=== PATIENT | female | born 1985 | race Caucasian/White ===

== ENCOUNTER 2021-09-21 06:40 | Emergency (ER) | payer OTHER ==
[~2021-09-21] VITALS: Ht 157.5 cm; Wt 74.8 kg
[2021-09-21 06:46] VITALS: BP 131/76
--- NOTE | 2021-09-21 06:46 | NUR ---
SEEN AND EXAMINED BY TANVIR
[2021-09-21 06:54] VITALS: BP 131/76
--- NOTE | 2021-09-21 07:05 | NUR ---
Olivia lee in ED - 09/21/21 at 0721 by VETO Patient went home with out Written and verbal after care instructions Patient verbalized understanding. Ambulatory with steady gait. All questions addressed prior to discharge. Advised to follow up with PMD.
--- NOTE | 2021-09-21 07:05 | NUR ---
Patient went home with out written discharge instructions. and verbal after care instructions was explained prior her discharge, with understanding.
== END 2021-09-21 07:05 | disposition home or self-care (01) ==
LOC: MED 06:40
DX: O20.0 Threatened abortion (principal); Z3A.01 Less than 8 weeks gestation of pregnancy
CPT/HCPCS: 99281

== ENCOUNTER 2021-11-19 03:16 | Inpatient (IN) | payer OTHER, SELFPAY ==
[~2021-11-19] VITALS: Ht 160 cm; Wt 80.7 kg
[2021-11-19 03:24] VITALS: BP 155/111
--- NOTE | 2021-11-19 03:30 | NUR ---
PT TAKEN TO BED 1
--- NOTE | 2021-11-19 03:32 | NUR ---
RECEIVED PT IN BED 1 WITH C/O 06/06 RUQ PAIN RAD TO EPIGASTRIC X11PM. PT IS 17WKS . PT STATES SHE WAS TOLD SHE HAS GERD. PT TOOK TUMS WITH NO RELIEF. +N/V. DENIES FEVER. DENIES CRAMPING AND VAGINAL BLEEDING DENIES HX RX AND ALLERGIES
[2021-11-19] MEDS ORDERED: MORPHINE SULFATE 4 MG/ML SYR IVP ONE ×2 (03:50→07:50)
[2021-11-19] MEDS ORDERED: NACL 0.9% 1,000 ML IV ONE ×2 (03:50→06:40)
[2021-11-19] MEDS ORDERED: ONDANSETRON 4 MG/2 ML VIAL IVP ONE ×2 (03:50→07:50)
[2021-11-19 03:53] LABS: APPEARANCE,URINE CLEAR (CLEAR); BILIRUBIN,URINE 1+ (NEGATIVE); BLOOD, URINE TRACE-I (NEGATIVE); COLOR,URINE DARK YELLOW (YELLOW); LEUKOCYTE ESTERASE ,URINE NEGATIVE (NEGATIVE); NITRITE, URINE NEGATIVE (NEGATIVE); PH,URINE 6.5 (5.0-9.0); UGLUCOSE NEGATIVE (NEGATIVE)
[2021-11-19 04:05] LABS: BASOPHILS % (AUTO) 0.1 % (0.0-2.0); EOSINOPHILS % (AUTO) 0.1 % (0.0-4.0); HEMOGLOBIN 13.5 g/dL (12.0-16.0); LYMPHOCYTES # (AUTO) 0.9 K/uL (2.5-16.5); LYMPHOCYTES % (AUTO) 5.5 % (20.5-51.1); MEAN CORPUSCULAR HEMOGLOBIN 30 pg (27-31); MEAN CORPUSCULAR HGB CONC 34 g/dL (33-37); MEAN CORPUSCULAR VOLUME 88.3 fL (80-94); MONOCYTES # (AUTO) 0.4 K/uL (0.8-1.0); MONOCYTES % (AUTO) 2.4 % (1.7-9.3); NEUTROPHILS # (AUTO) 15.1 K/uL (1.8-7.7); NEUTROPHILS % (AUTO) 91.9 % (42.2-75.2); PLATELET COUNT (AUTO) 284 K/uL (140-450); RED BLOOD CELL COUNT(AUTO) 4.53 MIL/uL (4.20-5.40); RED CELL DISTRIBUTION WIDTH 14.2 % (11.6-13.7); WHITE BLOOD COUNT (AUTO) 16.4 K/uL (4.8-10.8)
--- NOTE | 2021-11-19 04:31 | NUR ---
Ultrasound at bedside.
[2021-11-19 04:43] LABS: RBC,URINE 0-5 /HPF (0-5); WBC,URINE 0-5 /HPF (0-5)
[2021-11-19 04:50] LABS: ALBUMIN 3.3 g/dL (3.4-5.0); ANION GAP 14.2 (8-16); CARBON DIOXIDE 27.4 mmol/L (21-32); CREATININE 0.6 mg/dL (0.6-1.3); POTASSIUM 3.6 mmol/L (3.5-5.1); TOTAL BILIRUBIN 0.6 mg/dL (0.0-1.0)
[2021-11-19] MEDS ORDERED: metroNIDAZOLE 500 MG/NS PREMIX 100 ML IV ONE (05:00)
--- NOTE | 2021-11-19 06:00 | NUR ---
AWAKE. "MY PAIN IS MUCH LESS" RESTING COMFORTABLY
[2021-11-19] MEDS ORDERED: cefTRIAXone 1,000 MG VIAL ONE (06:16)
--- NOTE | 2021-11-19 07:14 | NUR ---
REPORT RECEIVED FROM RONALD DENISE. TRANSFER OF CARE AT THIS TIME.
--- NOTE | 2021-11-19 07:51 | NUR ---
PT IN BED AT LOWEST LEVEL WITH HOB RAISED. PT REPORTS NAUSEA AND PAIN. VITALS STABLE AT THIS TIME. MD CHARLES NOTIFIED.
--- NOTE | 2021-11-19 07:53 | NUR ---
MD CHARLES AT PT BEDSIDE FOR FURTER EVALUATION.
--- NOTE | 2021-11-19 09:34 | NUR ---
PT RESTING IN BED, VISIBLE EQUAL RISE AND FALL OF CHEST, VSS, WILL CONTINUE TO MONITOR.
[2021-11-19] MEDS ORDERED: ACETAMINOPHEN 325 MG TAB PO PRN ×2 (11:35→12:20)
[2021-11-19] MEDS ORDERED: ONDANSETRON 4 MG/2 ML VIAL IM/IVP PRN (11:35)
[2021-11-19] MEDS ORDERED: DOCUSATE SODIUM 100 MG GELCAP PO PRN (11:35)
--- NOTE | 2021-11-19 11:45 | NUR ---
Patient will be admitted to care of DR hamlin. Admited to tele . Will go to room 121B. Belongings list completed. Report to MATTHIAS CARDENAS AT BEDSIDE.
[2021-11-19] MEDS ORDERED: PNV1TABL5 PO (11:59)
[2021-11-19 12:10] LABS: MAGNESIUM 1.7 mg/dL (1.8-2.4)
[2021-11-19 12:30] VITALS: BP 113/68
--- NOTE | 2021-11-19 12:43 | NUR ---
DC PLANNING: FAXED THE ORDER FOR STABLE FOR TRANSFER TO [facility] [phone]. CM TO FOLLOW
[2021-11-19] MEDS ORDERED: MAGNESIUM OXIDE 400 MG TAB PO PRN (14:05)
[2021-11-19] MEDS ORDERED: POTASSIUM CHLORIDE 10 MEQ TABER PO PRN (14:05)
--- NOTE | 2021-11-19 15:18 | NUR ---
PATIENT HAS BEEN SCREENED AND CATEGORIZED MODERATE NUTRITION RISK. PATIENT WILL BE SEEN WITHIN 3-5 DAYS OF ADMISSION. / PB [address]
[2021-11-19 16:00] VITALS: BP 112/71
[2021-11-19] MEDS ORDERED: KETOROLAC 30 MG/ML VIAL IVP SCH (17:30)
--- NOTE | 2021-11-19 17:34 | NUR ---
Spoke to [facility], Nino Monroy and patient got accepted and [facility] will call the [facility] here and speak to charge for time of excelsior picker and to give number for report, accepting doctor is DR. Quintana.
--- NOTE | 2021-11-19 19:17 | NUR ---
RECEIVED REPORT FROM MORNING SHIFT NURSE. PATIENT RESTING ON BED. BREATHING EVEN AND UNLABORED. NO COMPLAINTS OF PAIN AT THIS TIME. AT BEDSIDE VISITING. WILL CONTINUE TO MONITOR PATIENT.
[2021-11-19 20:00] VITALS: BP 108/61
[2021-11-19] MEDS: CALCIUM CARBONATE 500 MG TAB.CHEW PO SCH (20:15)
--- NOTE | 2021-11-19 21:27 | NUR ---
DR CURTIS AT BEDSIDE AT THIS TIME.
[2021-11-20] VITALS: BP 104/62
--- NOTE | 2021-11-20 00:35 | NUR ---
Called [facility] [phone], spoke with CM after waiting for 30min, stated that pt is not stable to be transported
[2021-11-20 04:00] VITALS: BP 111/65
[2021-11-20 06:41] LABS: BASOPHILS % (AUTO) 0.4 % (0.0-2.0); EOSINOPHILS # (AUTO) 0.1 K/uL (0-0.4); HEMATOCRIT 36.2 % (36-48); HEMOGLOBIN 12.5 g/dL (12.0-16.0); LYMPHOCYTES # (AUTO) 1.5 K/uL (2.5-16.5); LYMPHOCYTES % (AUTO) 17.5 % (20.5-51.1); MEAN CORPUSCULAR HEMOGLOBIN 30 pg (27-31); MEAN CORPUSCULAR HGB CONC 34 g/dL (33-37); MEAN CORPUSCULAR VOLUME 87.5 fL (80-94); MONOCYTES # (AUTO) 0.5 K/uL (0.8-1.0); MONOCYTES % (AUTO) 5.4 % (1.7-9.3); NEUTROPHILS # (AUTO) 6.4 K/uL (1.8-7.7); NEUTROPHILS % (AUTO) 75.7 % (42.2-75.2); PLATELET COUNT (AUTO) 259 K/uL (140-450); RED BLOOD CELL COUNT(AUTO) 4.14 MIL/uL (4.20-5.40); RED CELL DISTRIBUTION WIDTH 14.2 % (11.6-13.7); WHITE BLOOD COUNT (AUTO) 8.5 K/uL (4.8-10.8)
[2021-11-20 06:52] LABS: ALBUMIN 2.8 g/dL (3.4-5.0); ANION GAP 12.3 (8-16); CREATININE 0.5 mg/dL (0.6-1.3); POTASSIUM 3.3 mmol/L (3.5-5.1); TOTAL BILIRUBIN 0.3 mg/dL (0.0-1.0)
--- NOTE | 2021-11-20 07:18 | NUR ---
REPORT GIVEN TO MORNING SHIFT RNCONNIE. PATIENT ASLEEP ON BED, STABLE.
--- NOTE | 2021-11-20 07:19 | NUR ---
Received report from pm nurse. Patient asleep in bed, respirations even & nonlabored, FLACC 0.
--- NOTE | 2021-11-20 08:42 | NUR ---
Received call from Dr. Salter, read back all lab results for today. Per Dr. Salter, patient may have regular diet, and may discharge home and follow up with [place] outpatient per surgeon standpoint. Dr. Paz notified.
[2021-11-20] MEDS: CALCIUM CARBONATE 500 MG TAB.CHEW PO SCH (09:00)
--- NOTE | 2021-11-20 10:00 | NUR ---
Patient resting in bed, awake, no c/o pain or discomfort. Respirations even & nonlabored in room air.
--- NOTE | 2021-11-20 10:30 | NUR ---
Patient tolerated regular breakfast well. No c/o nausea, no vomiting, no c/o abd pain or discomfort.
[2021-11-20] MEDS ORDERED: CEPH-588 PO (10:42)
--- NOTE | 2021-11-20 11:30 | NUR ---
Printed and verbal discharge instructions provided to patient: f/u, med reconciliation, diet. Patient verbalized understanding. Right hand IV removed, cannula intact, site covered with dry dressing. Patient ambulated off unit, accompanied by spouse. All belongings with patient upon departure.
== END 2021-11-20 11:30 | disposition home or self-care (01) | DRG 831 ==
LOC: MED 03:16 → MTU 11:05
PROVIDERS: ADMIT Hospitalist; ATTEND Hospitalist
DX: O98.812 Other maternal infectious and parasitic diseases complicating pregnancy, second trimester (principal); A41.9 Sepsis, unspecified organism; E44.1 Mild protein-calorie malnutrition; O26.612 Liver and biliary tract disorders in pregnancy, second trimester; O99.282 Endocrine, nutritional and metabolic diseases complicating pregnancy, second trimester; Z20.822 Contact with and (suspected) exposure to COVID-19; E83.42 Hypomagnesemia; K21.9 Gastro-esophageal reflux disease without esophagitis; K83.8 Other specified diseases of biliary tract; K82.8 Other specified diseases of gallbladder; O25.12 Malnutrition in pregnancy, second trimester; O99.612 Diseases of the digestive system complicating pregnancy, second trimester; Z3A.16 16 weeks gestation of pregnancy
CPT/HCPCS: 36415; 76705; 80053; 81001; 83605; 83690; 83735; 84100; 85025; 87040; 87086; 96361; 96365; 96367; 96375; 99285; J0696; J1885; J2270; J2405; J3490; J7030; Q0092